=== PATIENT | female | born 1980 | race Caucasian/White ===

== ENCOUNTER 2018-10-01 10:53 | Emergency (ER) | payer SELFPAY ==
[~2018-10-01] VITALS: Ht 172.7 cm; Wt 68.2 kg
[~2018-10-01 10:53] MED LIST: ANTI-DIARRHE2 M1 PO; AUGMENTIN875TAB PO; DIFLUCAN150 MG PO; LEXAPRO10 MG PO; LEXAPRO20 MG PO; NAPROSYN500 MG PO; NO HOME MEDS; ROBITUSSIN AC10 ML PO; TYLENOL # 31 TA1 PO; ULTRAM50 M1 PO; XANAX0.5 MG PO; ZITHROMAX250 MG PO; ZOFRAN4 MG/TAB PO
[2018-10-01] MEDS ORDERED: TESSALON PER100 MG PO (12:54)
[2018-10-01] MEDS ORDERED: PREDNISONE20 MG PO (12:54)
[2018-10-01] MEDS ORDERED: ALBUTEROL SUL0.083 % IN (12:54)
[2018-10-01] MEDS ORDERED: ZITHROMAX500 MG PO (12:54)
[2018-10-01] MEDS ORDERED: NO HOME MEDS (13:30)
[2018-10-01 13:35] VITALS: BP 110/71
== END 2018-10-01 13:35 | disposition home or self-care (01) | DRG 203 ==
LOC: ED 10:53
DX: J40 Bronchitis, not specified as acute or chronic (principal); J32.9 Chronic sinusitis, unspecified; R50.9 Fever, unspecified; F17.200 Nicotine dependence, unspecified, uncomplicated

== ENCOUNTER 2018-11-11 14:39 | Emergency (ER) | payer SELFPAY ==
[~2018-11-11] VITALS: Ht 172.7 cm; Wt 70.0 kg
[~2018-11-11 14:39] MED LIST changes: +ALBUTEROL SUL0.083 % IN; +PREDNISONE20 MG PO; +TESSALON PER100 MG PO; +ZITHROMAX500 MG PO
[2018-11-11 16:15] LABS: HEMATOCRIT 38.6 % (37.0-47.0); HEMOGLOBIN 12.8 g/dl (12.0-16.0); IMMATURE GRANULOCYTES 0.3 % (0.0-5.0); MEAN CELL VOLUME 95.3 fL CALC (80.0-100.0); MEAN CORPUSCULAR HGB 31.6 pG CALC (26.0-32.0); MEAN CORPUSCULAR HGB CONC 33.2 g/L CALC (32.0-36.0); NEUT# 4.66 thou/uL (2.00-7.15); RED BLOOD COUNT 4.05 mill/uL (4.20-5.60); RED CELL DISTRI WIDTH 12.7 % (11.5-15.5)
[2018-11-11 16:25] LABS: ALBUMIN 4.2 g/dL (3.2-5.0); ALKALINE PHOSPHATASE 56 u/l (38-126); ANION GAP 13 (6-22 (CALC)); BILIRUBIN, TOTAL 0.5 mg/dL (0.0-1.4); BUN 10 mg/dL (7-17); BUN/CREATININE RATIO 15 (12-20 (CALC)); CARBON DIOXIDE 22 mmol/l (22-30); CHLORIDE 110 mmol/l (95-108); CREATININE 0.7 mg/dL (0.5-1.0); GFR > 60 ML/MIN (>=60 (CALC)); GFR FOR AFR.AMER. > 60 ML/MIN (>=60 (CALC)); POTASSIUM 4.2 mmol/l (3.5-5.1); SGOT/AST 24 u/l (14-36); SODIUM 141 mmol/l (137-146); TOTAL PROTEIN 6.9 g/dL (6.3-8.2)
[2018-11-11 16:56] LABS: URINE BILIRUBIN - DIPSTICK NEGATIVE (NEGATIVE); URINE BLOOD DIPSTICK NEGATIVE (NEGATIVE); URINE COLOR YELLOW; URINE GLUCOSE - DIPSTICK NEGATIVE (NEGATIVE); URINE KETONE NEGATIVE (NEGATIVE); URINE LEUK ESTERASE NEGATIVE (NEGATIVE); URINE NITRITE - DIPSTICK NEGATIVE (Negative); URINE PROTEIN - DIPSTICK NEGATIVE (NEG-TRACE); URINE SPECIFIC GRAVITY 1.015; URINE UROBILINOGEN - DIPSTICK 0.2 E.U./dL (0.2)
[2018-11-11 17:00] LABS: BARBITURATES NEGATIVE (NEGATIVE); COCAINE NEGATIVE (NEGATIVE); METHADONE NEGATIVE (NEGATIVE); OXCYCODONE NEGATIVE (NEGATIVE); TETRAHYDROCANNABIONOL POSITIVE (NEGATIVE); TRICYLIC ANTIDEPRESSANTS NEGATIVE (NEGATIVE)
[2018-11-11] MEDS ORDERED: TORADOL PO (17:07)
[2018-11-11] MEDS ORDERED: ZOFRAN4 M1 PO (17:07)
[2018-11-11 17:11] VITALS: BP 116/76
== END 2018-11-11 17:19 | disposition home or self-care (01) | DRG 392 ==
LOC: ED 14:39
PROVIDERS: Emergency Medicine
DX: R10.31 Right lower quadrant pain (principal); R11.2 Nausea with vomiting, unspecified; F17.210 Nicotine dependence, cigarettes, uncomplicated; Z87.442 Personal history of urinary calculi

== ENCOUNTER 2023-06-19 22:52 | Emergency (ER) | payer SELFPAY ==
[~2023-06-19] VITALS: Ht 172.7 cm; Wt 65.7 kg
[~2023-06-19 22:52] MED LIST changes: +TORADOL PO; +VENTOLIN HFA108 MCG PO; +ZOFRAN4 M1 PO
[2023-06-19 23:35] VITALS: BP 129/102
[2023-06-20] MEDS ORDERED: NEXIUM40 M1 PO (00:02)
[2023-06-20] MEDS ORDERED: MELOXICAM7.5 MG PO (01:36)
[2023-06-20] MEDS ORDERED: MEDDOSEPAK PO (01:36)
[2023-06-20 02:05] VITALS: BP 129/102
== END 2023-06-20 02:05 | disposition home or self-care (01) | DRG 556 ==
LOC: ED 22:52
DX: M25.511 Pain in right shoulder (principal); F41.9 Anxiety disorder, unspecified; F32.A Depression, unspecified; F17.200 Nicotine dependence, unspecified, uncomplicated

== ENCOUNTER 2023-07-31 13:52 | Emergency (ER) | payer SELFPAY ==
[2023-07-31] VITALS (14 sets, daily range): BP systolic 103–133; BP diastolic 69–108
[~2023-07-31] VITALS: Ht 172.7 cm; Wt 68.0 kg
[~2023-07-31 13:52] MED LIST changes: +MEDDOSEPAK PO; +MELOXICAM7.5 MG PO; +NEXIUM40 M1 PO
[2023-07-31 14:20] LABS: URINE BLOOD DIPSTICK Moderate (NEGATIVE); URINE GLUCOSE - DIPSTICK Negative (NEGATIVE); URINE KETONE 15 mg/dL (NEGATIVE); URINE NITRITE - DIPSTICK Negative (Negative); URINE PH 5.5 (4.5-8.0); URINE PROTEIN - DIPSTICK 30 mg/dL (NEG-TRACE); URINE SPECIFIC GRAVITY >=1.030
[2023-07-31 14:22] LABS: URINE COLOR Dark yellow; URINE LEUK ESTERASE Small (NEGATIVE)
[2023-07-31] MEDS ORDERED: methylPREDNISolone SODIUM SUCC 125 MG/2 ML SDV IM ONE (14:30)
[2023-07-31] MEDS ORDERED: IPRATROPIUM-Albuterol 0.5MG-2.5MG/3 ML NEB ONE (14:30)
[2023-07-31 14:31] LABS: URINE RBC 0-2 RBC/hpf (0-5)
[2023-07-31 14:32] LABS: URINE BACTERIA MODERATE hpf; URINE SQUAMOUS EPITHELIAL CELL MODERATE EPI/hpf (0-FEW)
[2023-07-31 14:33] LABS: URINE MUCUS MODERATE hpf (NONE-FEW)
[2023-07-31] MEDS ORDERED: GUAIFENESIN 200 MG/10 ML UDC PO ONE (16:20)
[2023-07-31] MEDS ORDERED: PREDNISONE20 MG PO (16:58)
[2023-07-31] MEDS ORDERED: LEVOCETIRIZINE D5 MG PO (16:58)
[2023-07-31] MEDS ORDERED: PROAIR HFA IN (16:58)
[2023-07-31] MEDS ORDERED: LEVOFLOXACIN500MG PO (16:58)
== END 2023-07-31 17:15 | disposition home or self-care (01) | DRG 203 ==
LOC: ED 13:52
PROVIDERS: Nurse Practitioner
DX: J20.9 Acute bronchitis, unspecified (principal); F32.A Depression, unspecified; F41.9 Anxiety disorder, unspecified; F17.200 Nicotine dependence, unspecified, uncomplicated; Z20.822 Contact with and (suspected) exposure to COVID-19

== ENCOUNTER 2024-02-06 20:02 | Emergency (ER) | payer SELFPAY ==
[~2024-02-06] VITALS: Ht 172.7 cm; Wt 66.0 kg
[~2024-02-06 20:02] MED LIST changes: +LEVOCETIRIZINE D5 MG PO; +LEVOFLOXACIN500MG PO; +PROAIR HFA IN
[2024-02-06] MEDS ORDERED: DEXAMETHASONE 2 MG/TAB TAB PO ONE (20:25)
[2024-02-06] MEDS ORDERED: BENZONATATE 200 MG/CAP PO ONE (20:25)
[2024-02-06] MEDS ORDERED: IPRATROPIUM-Albuterol 0.5MG-2.5MG/3 ML NEB ONE ×2 (20:25→23:45)
[2024-02-06] MEDS ORDERED: HYDROcodone POLISTIREX/CHLORPH 5 ML UDC PO ONE (20:25)
[2024-02-06] MEDS ORDERED: VENTOLIN HFA108 MCG IN (23:16)
[2024-02-06] MEDS ORDERED: PROMETHAZINE DM1 SOL PO (23:16)
[2024-02-06] MEDS ORDERED: PREDNISONE20 MG PO (23:16)
[2024-02-06] MEDS ORDERED: BENZONATATE200 MG PO (23:16)
[2024-02-07 00:35] VITALS: BP 114/78
== END 2024-02-07 00:35 | disposition home or self-care (01) | DRG 203 ==
LOC: ED 20:02
DX: J20.9 Acute bronchitis, unspecified (principal); F41.9 Anxiety disorder, unspecified; F32.A Depression, unspecified; F17.200 Nicotine dependence, unspecified, uncomplicated; Z20.822 Contact with and (suspected) exposure to COVID-19

== ENCOUNTER 2024-06-30 10:56 | Emergency (ER) | payer SELFPAY ==
[2024-06-30] VITALS (7 sets, daily range): BP systolic 101–111; BP diastolic 74–84
[~2024-06-30] VITALS: Ht 172.7 cm; Wt 65.0 kg
[~2024-06-30 10:56] MED LIST changes: +BENZONATATE200 MG PO; +PROMETHAZINE DM1 SOL PO; +VENTOLIN HFA108 MCG IN
[2024-06-30] MEDS ORDERED: BACTRIM DS1 TAB PO (12:13)
== END 2024-06-30 12:45 | disposition home or self-care (01) | DRG 603 ==
LOC: ED 10:56
DX: L03.114 Cellulitis of left upper limb (principal); F32.A Depression, unspecified; F41.9 Anxiety disorder, unspecified; F17.200 Nicotine dependence, unspecified, uncomplicated

== ENCOUNTER 2024-07-09 18:40 | Emergency (ER) | payer SELFPAY ==
[~2024-07-09] VITALS: Ht 172.7 cm; Wt 65.0 kg
[~2024-07-09 18:40] MED LIST changes: +BACTRIM DS1 TAB PO
[2024-07-09] MEDS ORDERED: BENZONATATE 200 MG/CAP PO ONE (20:30)
[2024-07-09] MEDS ORDERED: predniSONE 20 MG/TAB PO ONE (20:30)
[2024-07-09] MEDS ORDERED: HYDROcodone POLISTIREX/CHLORPH 5 ML UDC PO ONE (20:30)
[2024-07-09 21:36] VITALS: BP 112/79
== END 2024-07-09 21:40 | disposition home or self-care (01) | DRG 179 ==
LOC: ED 18:40
DX: U07.1 COVID-19 (principal); R05.9 Cough, unspecified; R50.9 Fever, unspecified; R52 Pain, unspecified; F17.200 Nicotine dependence, unspecified, uncomplicated